=== PATIENT | female | born 1950 ===

== ENCOUNTER 2022-11-12 05:29 | Day surgery (SDC) | payer OTHER ==
[~2022-11-12] VITALS: Ht 152.4 cm; Wt 81.6 kg
[~2022-11-12 05:29] MED LIST: SEPTRA DS TABLE1 TAB PO; SYNTHROID137 MCG PO; TRAM1TAB98 PO
[2022-11-12] MEDS ORDERED: TRAM1TAB98 PO (08:21)
== END 2022-11-12 10:15 | disposition home or self-care (01) ==
LOC: CIR.AMB 05:29
PROVIDERS: ATTEND Surgery
DX: R15.9 Full incontinence of feces (principal); R14.0 Abdominal distension (gaseous); Z20.822 Contact with and (suspected) exposure to COVID-19; Z88.6 Allergy status to analgesic agent; K57.30 Diverticulosis of large intestine without perforation or abscess without bleeding
CPT/HCPCS: 64590; 95972; C1767